=== PATIENT | female | born 1975 | race Caucasian/White ===

== ENCOUNTER 2017-01-19 23:15 | Inpatient (IN) | payer OTHER ==
[2017-01-20 00:11] VITALS: BMI 37.3
--- NOTE | 2017-01-20 00:11 | HP ---
COWS - Scale Resting Pulse: 0= [place] 80 or Below Sweatin= Chills/Flushing Restless Observation: 3= Extraneous Movement Pupil Size: 1= Pupils >than Normal Bone or Joint Aches: 2= Severe Diffuse Aches Runny Nose/ Eye Tearin= Runny Nose/Eyes GI Upset > 30mins: 3= Vomiting/Diarrhea Tremor Observation: 1= Tremor [place], Not Seen Yawning Observation: 1= 1-2x During Session Anxiety or Irritability: 4=Extreme Anxiety Goose Flesh Skin: 0=Smooth Skin COWS Score: 18 Admission ROS S - HPI Chief Complaint: WITHDRAWAL SYMPTOMS Allergies/Adverse Reactions: Allergies Allergy/AdvReac Type Severity Reaction Status Date / Time Penicillins AdvReac Verified 01/20/17 00:10 prochlorperazine AdvReac Verified 01/20/17 00:10 [From Compazine] prochlorperazine edisylate AdvReac Verified 01/20/17 00:10 [From Compazine] prochlorperazine maleate AdvReac Verified 01/20/17 00:10 [From Compazine] History of Present Illness: 41 Y.O. WOMAN WITH A 10 YEAR HISTORY OF PRESCRIPTION OPIOID DEPENDENCE IS SEEKING DETOX. THIS IS HER FIRST ADMISSION EVER INTO DETOX. SHE DOES NOT HAVE A SIGNIFICANT PERIOD OF BEING CLEAN. Exam Limitations: No Limitations - Ebola screening Have you traveled outside of the country in the last 21 days: No (N) Have you had contact with anyone from an Ebola affected area: No Do you have a fever: No - Review of Systems Constitutional: Chills, Diaphoresis, Loss of Appetite, Malaise, Night Sweats, Changes in sleep EENT: reports: Tearing, Nose Congestion Respiratory: reports: No Symptoms reported Cardiac: reports: No Symptoms Reported GI: reports: Nausea, Vomiting, Abdominal cramping : reports: No Symptoms Reported Musculoskeletal: reports: Back Pain (bulging cervical disc), Other Integumentary: reports: No Symptoms Reported Neuro: reports: No Symptoms reported Endocrine: reports: No Symptoms Reported Hematology: reports: No Symptoms Reported Psychiatric: reports: Orientated x3, Anxious, other (INSOMNIA) Other Systems: Reviewed and Negative Patient History - Patient Medical History Hx Anemia: No Hx Asthma: No Hx Chronic Obstructive Pulmonary Disease (COPD): No Hx Cancer: No Hx Cardiac Disorders: No Hx Congestive Heart Failure: No Hx Hypertension: No Hx Hypercholesterolemia: No Hx Pacemaker: No HX Cerebrovascular Accident: No Hx Seizures: No Hx Dementia: No Hx Diabetes: No Hx Gastrointestinal Disorders: No Hx Liver Disease: No Hx Genitourinary Disorders: No Hx Sexually Transmitted Disorders: No Hx Renal Disease (ESRD): No Hx Thyroid Disease: No Hx Human Immunodeficiency Virus (HIV): No Hx Hepatitis C: No Hx Depression: No Hx Suicide Attempt: No Hx Bipolar Disorder: No Hx Schizophrenia: No - Patient Surgical History Past Surgical History: Yes Other Surgical History: Tonsillectomy Anesthesia Reaction: No - PPD History Previous Implant?: Yes Documented Results: Negative w/o proof PPD to be Administered?: Yes - Reproductive History Patient is a Female of Child Bearing Age (11 -55 yrs old): Yes Last Menstrual Period: 01/02/12 Patient : No - Smoking Cessation Smoking history: Current some day smoker Have you smoked in the past 12 months: Yes Aproximately how many cigarettes per day: 1 Hx Chewing Tobacco Use: No Initiated information on smoking cessation: Yes 'Breaking Loose' booklet given: 01/20/17 - Substance & Tx. History Hx Alcohol Use: No Hx Substance Use: Yes Substance Use Type: Opiates, Prescribed Hx Substance Use Treatment: No (Denies every receiving detox or rehab services. ) - Substances Abused DILAUDID Route: Oral Frequency: 3-6 times per week Amount used: 48 Age of first use: 31 Date of Last Use: 01/16/17 OXYCODON Route: Oral Frequency: 3-6 times per week Amount used: 240MG Age of first use: 31 Date of Last Use: 01/16/17 Family Disease History - Family Disease History Family Disease History: Diabetes: Grandparent, Other: Father (HX ETOH DEPENDENCE ) Admission Physical Exam BHS - Vital Signs Vital Signs: Last Vital Signs Temp Pulse Resp BP Pulse Ox 96.5 F L 58 L 20 156/93 01/20/17 00:31 01/20/17 00:31 01/20/17 00:31 01/20/17 00:31 - Physical General Appearance: Yes: Obese, Tremorous, Irritable, Sweating, Anxious HEENTM: Yes: Hearing grossly Normal, Normal ENT Inspection, Normocephalic Respiratory: Yes: Lungs Clear, Normal Breath Sounds, No Respiratory Distress, No Accessory Muscle Use Neck: Yes: Trachea in good position Breast: Yes: Breast Exam Deferred Cardiology: Yes: Regular Rhythm, Regular Rate Abdominal: Yes: Non Tender, Flat, Soft Genitourinary: Yes: Other (NO COMPLAINTS REPORTED) Back: Yes: Normal Inspection Musculoskeletal: Yes: Back pain, Muscle Pain Extremities: Yes: Tremors Neurological: Yes: Alert, Normal Response Integumentary: Yes: Dry, Warm Lymphatic: Yes: Within Normal Limits - Diagnostic (1) Opioid dependence with withdrawal Current Visit: Yes Status: Chronic (2) Obese Current Visit: Yes Status: Chronic (3) Chronic back pain Current Visit: Yes Status: Chronic Cleared for Admission S - Detox or Rehab [facility] Level of Care: Medically Managed Detox Regimen/Protocol: Methadone S Breath Alcohol Content Breath Alcohol Content: 0 Vital Signs - Vital Signs Vital Signs Refused: No Temperature: 96.5 F Temperature Source: Oral Pulse Rate: 58 Respiratory Rate: 20 Blood Pressure: 156/93 BP Location: Left Arm Blood Pressure Position: Sitting - Height Height: 5 ft 7 in - Weight Weight: 238 lb Weight Measurement Method: Standing Scale Body Mass Index (BMI): 37.3 Urine Pregancy Test - Test Device Lot Number: [id number] Expiration Date: 07/02/18 - Control Horizontal Line in Upper Control Window?: Yes - Result Urine Test Results: Negative- NO Line Present Urine Drug Screen - Test Device Lot Number: [id number] Expiration Date: 10/31/18 - Control Is Test Valid: Yes - Results Drug Screen Negative: No Urine Drug Screen Results: OPI-Opiates, BZO-Benzodiazepines, TCA-Tricyclic Antidepress
[2017-01-20] MEDS ORDERED: MAGNESIUM HYDROX 2400MG/30ML ORAL SUSPENSION 30 ML CUP PO PRN (00:55)
[2017-01-20] MEDS ORDERED: ACETAMINOPHEN 325 MG TABLET (FP) PO PRN (00:55)
[2017-01-20] MEDS ORDERED: MAG HYDROX/AL HYDROX/SIMETH 30 ML UNIT-DOSE CUP PO PRN (00:55)
[2017-01-20] MEDS ORDERED: METHADONE HCL 10 MG TABLET (FOR DETOX USE ONLY) PO ONE ×3 (00:55→23:00)
[2017-01-20] MEDS ORDERED: P-EPHED 60MG/TRIPROLIDI 2.5MG TABLET PO PRN (00:55)
[2017-01-20] MEDS ORDERED: IBUPROFEN 400 MG TABLET (FP) PO PRN (00:55)
[2017-01-20] MEDS ORDERED: MENTHOL/PHENOL 1 EACH UD MM PRN (00:55)
[2017-01-20] MEDS ORDERED: LOPERAMIDE HCL 2 MG CAPSULE PO PRN (00:55)
[2017-01-20] MEDS ORDERED: MAGNESIUM CITRATE 300 ML BOTTLE PO PRN (00:55)
[2017-01-20] MEDS ORDERED: guaiFENesin/D-METHORPHAN HB 10 ML UNIT-DOSE CUPS PO PRN (00:55)
[2017-01-20] MEDS ORDERED: cloNIDine HCL 0.1 MG TABLET PO PRN (01:20)
[2017-01-20] MEDS: TRIMETHOBENZAMIDE HCL 200MG/2ML INJ IM PRN ×2 (01:31→09:08)
[2017-01-20] MEDS: diazePAM 5 MG TABLET PO PRN ×4 (02:03→22:19)
[2017-01-20] MEDS: hydrOXYzine PAMOATE 50 MG CAPSULE (FP) PO PRN ×4 (03:22→17:02)
[2017-01-20] MEDS: cloNIDine HCL 0.1 MG TABLET PO PRN ×2 (07:45→17:02)
[2017-01-20] MEDS: PRENATAL VITAMINS W/ FOLIC ACID TABLET (FP) PO SCH (10:44)
--- NOTE | 2017-01-20 11:13 | PN ---
[facility] COWS - Scale Resting Pulse: 1= [place] 81-100 Sweatin= Chills/Flushing Restless Observation: 1= Difficult to Sit Still Pupil Size: 1= Pupils >than Normal Bone or Joint Aches: 2= Severe Diffuse Aches Runny Nose/ Eye Tearin= Nasal Congestion GI Upset > 30mins: 3= Vomiting/Diarrhea Tremor Observation of Outstretched Hands: 2= Slight Tremor Visible Yawning Observation: 0= None Anxiety or Irritability: 2=Irritable/Anxious Goose Flesh Skin: 0=Smooth Skin COWS Score: 14 BHS Progress Note (SOAP) Subjective: interruptted sleep, sweats, nausea, vomiting , bodyaches Objective: 01/20/17 11:11 Vital Signs Temperature 98.2 F 01/20/17 09:38 Pulse Rate 60 01/20/17 09:38 Respiratory Rate 18 01/20/17 09:38 Blood Pressure 174/91 01/20/17 09:38 O2 Sat by Pulse Oximetry (%) Assessment: 01/20/17 11:12 withdrawal sx's 01/20/17 14:50 Plan: cont. detox increase fluids tigan im zofran s/l prn
[2017-01-20] MEDS: ONDANSETRON *ODT* 4 MG TABLET SL PRN (12:00)
[2017-01-20 19:50] LABS: URINE APPEARANCE CLEAR; URINE BILIRUBIN NEGATIVE (NEGATIVE); URINE BLOOD NEGATIVE (NEGATIVE); URINE COLOR YELLOW; URINE GLUCOSE (UA) NEGATIVE (NEGATIVE); URINE KETONE NEGATIVE (NEGATIVE); URINE LEUK ESTERASE NEGATIVE (NEGATIVE); URINE NITRITE NEGATIVE (NEGATIVE); URINE PROTEIN NEGATIVE (NEGATIVE); URINE UROBILINOGEN 2.0 E.U/dl E.U./dl (0.2-1.0)
[2017-01-20] MEDS: THIAMINE HCL 100 MG TABLET (FP) PO SCH (22:18)
[2017-01-20] MEDS: diphenhydrAMINE HCL 50 MG CAPSULE PO PRN (22:19)
[2017-01-21] MEDS: diazePAM 5 MG TABLET PO PRN ×4 (05:27→20:20)
[2017-01-21] MEDS: cloNIDine HCL 0.1 MG TABLET PO PRN ×2 (06:50→22:36)
--- NOTE | 2017-01-21 09:10 | CONSULT ---
[facility] Psychiatric Consult - Data Date of interview: 01/21/17 Admission source: [facility] Identifying data: This is 41 years old female with no psychiatric hospitalization history intoxicated with: Opioids, Benzodiazepins, TCA Substance Abuse History: Urine Drug Screen Results: OPI-Opiates, BZO- Benzodiazepines, TCA-Tricyclic Antidepress. - Smoking Cessation. Smoking history: Current some day smoker. Have you smoked in the past 12 months: Yes. Aproximately how many cigarettes per day: 1. Hx Chewing Tobacco Use: No. Initiated information on smoking cessation: Yes. 'Breaking Loose' booklet given : 01/20/17. - Substance & Tx. History. Hx Alcohol Use: No. Hx Substance Use: Yes. Substance Use Type: Opiates, Prescribed. Hx Substance Use Treatment: No ( Denies every receiving detox or rehab services. ). - Substances Abused. DILAUDID. Route: Oral. Frequency: 3-6 times per week. Amount used: 48. Age of first use: 31. Date of Last Use: 01/16/17. OXYCODON. Route: Oral. Frequency: 3-6 times per week. Amount used: 240MG. Age of first use: 31. Date of Last Use: 01/16/17 Medical History: LBP, Obesity Psychiatric History: Patient reports no past psychiatric history, no medications taking prior to admission Physical/Sexual Abuse/Trauma History: Denies Additional Comment: Observation. Detox Unit Care Protocol. Urine Drug Screen Results: OPI-Opiates, BZO-Benzodiazepines, TCA-Tricyclic Antidepress Mental Status Exam - Mental Status Exam Alert and Oriented to: Person Cognitive Function: Fair Patient Appearance: Unkempt Mood: Sad Patient Behavior: Sedated Speech Pattern: Delayed Voice Loudness: Mildly Soft/Quiet Thought Process: Circumstantial Thought Disorder: Being Controlled Hallucinations: Denies Suicidal Ideation: Denies Homicidal Ideation: Denies Insight/Judgement: Fair Sleep: Difficulty falling asleep Appetite: Weight gain Muscle strength/Tone: Mild Hypotonicity Gait/Station: Shuffling Additional Comments: Observation. Detox Unit Care Protocol Psychiatric Findings - Problem List ([place] 1, 2,3) (1) Chronic back pain Current Visit: Yes Status: Chronic (2) Opioid dependence with withdrawal Current Visit: Yes Status: Chronic (3) Benzodiazepine abuse Current Visit: Yes Status: Acute (4) Drug-induced mood disorder Current Visit: Yes Status: Suspected - Initial Treatment Plan Initial Treatment Plan: Observation. Detox Unit Care Protocol
[2017-01-21 09:54] LABS: MCH 29.4 pg (25.7-33.7); MCHC 33.1 g/dl (32.0-36.0); MEAN CELL VOLUME 88.9 fl (80-96); MEAN PLT VOLUME 9.2 fl (7.5-11.1); PLATELET COUNT 281 K/MM3 (134-434); RDW 14.6 % (11.6-15.6); WHITE BLOOD COUNT 10.9 K/mm3 (4.0-10.0)
[2017-01-21] MEDS ORDERED: METHADONE HCL 10 MG TABLET (FOR DETOX USE ONLY) PO ONE (10:00)
[2017-01-21 10:11] LABS: ALBUMIN 3.9 g/dl (3.4-5.0); ANION GAP 8 (8-16); CALCIUM 9.7 mg/dL (8.5-10.1); CO2 26 mmol/L (21-32); CREATININE 0.7 mg/dL (0.55-1.02); GLUCOSE,RANDOM 94 mg/dL (74-106); SGOT/AST 14 U/L (15-37); SGPT/ALT 19 U/L (12-78)
[2017-01-21 10:14] LABS: ALK PHOS 97 U/L (45-117); BILIRUBIN,TOTAL 0.8 mg/dL (0.2-1.0); TOT PROT 7.2 g/dl (6.4-8.2)
[2017-01-21] MEDS: PRENATAL VITAMINS W/ FOLIC ACID TABLET (FP) PO SCH (10:21)
--- NOTE | 2017-01-21 11:04 | EKG ---
Test Reason : Blood Pressure : / mmHG Vent. Rate : 053 BPM Atrial Rate : 053 BPM P-R Int : 180 ms QRS Dur : 106 ms QT Int : 418 ms P-R-T Axes : 046 076 063 degrees QTc Int : 392 ms SINUS BRADYCARDIA OTHERWISE NORMAL ECG NO PREVIOUS ECGS AVAILABLE Confirmed by KALEN COLON, ANEL ([id number]) on 01/21/2017 11:04:32 AM Referred By: Lindy Gary Confirmed By:ANEL HIGUERA MD
--- NOTE | 2017-01-21 12:52 | PN ---
S COWS - Scale Resting Pulse: 0= [place] 80 or Below Sweatin= Chills/Flushing Restless Observation: 1= Difficult to Sit Still Pupil Size: 1= Pupils >than Normal Bone or Joint Aches: 1= Mild Discomfort Runny Nose/ Eye Tearin= Nasal Congestion GI Upset > 30mins: 2= Nausea/Diarrhea Tremor Observation of Outstretched Hands: 1= Tremor [place], Not Seen Yawning Observation: 0= None Anxiety or Irritability: 2=Irritable/Anxious Goose Flesh Skin: 0=Smooth Skin COWS Score: 10 [facility] Progress Note (SOAP) Subjective: interrupted sleep, nausea, vomiting , not eatting Objective: 01/21/17 12:54 Vital Signs Temperature 97.2 F L 01/21/17 09:53 Pulse Rate 68 01/21/17 09:53 Respiratory Rate 18 01/21/17 09:53 Blood Pressure 132/92 01/21/17 09:53 O2 Sat by Pulse Oximetry (%) Laboratory Tests 01/20/17 01/21/17 01/21/17 15:26 07:00 07:00 WBC 10.9 H RBC 4.59 Hgb 13.5 Hct 40.9 MCV 88.9 MCHC 33.1 RDW 14.6 Plt Count 281 MPV 9.2 Sodium 140 Potassium 4.4 Chloride 106 Carbon Dioxide 26 Anion Gap 8 BUN 10 Creatinine 0.7 Creat Clearance w eGFR > 60 Random Glucose 94 Calcium 9.7 Total Bilirubin 0.8 AST 14 L ALT 19 Alkaline Phosphatase 97 Total Protein 7.2 Albumin 3.9 Urine Color Yellow Urine Appearance Clear Urine pH 7.0 Ur Specific [place] 1.020 Urine Protein Negative Urine Glucose (UA) Negative Urine Ketones Negative Urine Blood Negative Urine Nitrite Negative Urine Bilirubin Negative Urine Urobilinogen 2.0 e.u/dl H Ur Leukocyte Esterase Negative RPR Titer 01/21/17 07:00 WBC RBC Hgb Hct MCV MCHC RDW Plt Count MPV Sodium Potassium Chloride Carbon Dioxide Anion Gap BUN Creatinine Creat Clearance w eGFR Random Glucose Calcium Total Bilirubin AST ALT Alkaline Phosphatase Total Protein Albumin Urine Color Urine Appearance Urine pH Ur Specific [place] Urine Protein Urine Glucose (UA) Urine Ketones Urine Blood Urine Nitrite Urine Bilirubin Urine Urobilinogen Ur Leukocyte Esterase RPR Titer Nonreactive pt aox3 in nad lying in bed no vomiting 01/21/17 12:54 Assessment: 01/21/17 12:54 withdrawal sx's pt wants im meds for vomiting and iv fluids - but there has been no vomiting , vss bun creatinine normal -pt doesnt appear dehydrated . pt given a pitcher at bedside and encourage to drink fluids 01/21/17 12:55 Plan: cont. detox increase fluids
[2017-01-21] MEDS ORDERED: NICOTINE POLACRILEX 4 MG GUM BUC PRN (21:29)
[2017-01-21] MEDS: hydrOXYzine PAMOATE 50 MG CAPSULE (FP) PO PRN (22:36)
[2017-01-21] MEDS: THIAMINE HCL 100 MG TABLET (FP) PO SCH (22:36)
[2017-01-22] MEDS: cloNIDine HCL 0.1 MG TABLET PO PRN ×3 (04:47→22:16)
[2017-01-22] MEDS: hydrOXYzine PAMOATE 50 MG CAPSULE (FP) PO PRN ×2 (04:47→22:16)
[2017-01-22] MEDS: TRIMETHOBENZAMIDE HCL 200MG/2ML INJ IM PRN ×2 (05:06→11:42)
[2017-01-22] MEDS: diazePAM 5 MG TABLET PO PRN ×2 (05:49→11:37)
[2017-01-22] MEDS ORDERED: METHADONE HCL 5 MG TABLET (FOR DETOX USE ONLY) PO ONE (10:00)
[2017-01-22] MEDS: NICOTINE 21 MG/24 HOURS TOPICAL PATCH TD SCH ×2 (10:10→14:59)
[2017-01-22] MEDS: PRENATAL VITAMINS W/ FOLIC ACID TABLET (FP) PO SCH (10:10)
--- NOTE | 2017-01-22 12:35 | PN ---
[facility] Progress Note (SOAP) Subjective: interrupted sleep, sweats, nausea, vomiting Objective: 01/22/17 12:33 Vital Signs Temperature 98.2 F 01/22/17 09:44 Pulse Rate 60 01/22/17 09:44 Respiratory Rate 20 01/22/17 09:44 Blood Pressure 150/95 01/22/17 09:44 O2 Sat by Pulse Oximetry (%) Laboratory Tests 01/20/17 01/21/17 01/21/17 15:26 07:00 07:00 WBC 10.9 H RBC 4.59 Hgb 13.5 Hct 40.9 MCV 88.9 MCHC 33.1 RDW 14.6 Plt Count 281 MPV 9.2 Sodium 140 Potassium 4.4 Chloride 106 Carbon Dioxide 26 Anion Gap 8 BUN 10 Creatinine 0.7 Creat Clearance w eGFR > 60 Random Glucose 94 Calcium 9.7 Total Bilirubin 0.8 AST 14 L ALT 19 Alkaline Phosphatase 97 Total Protein 7.2 Albumin 3.9 Urine Color Yellow Urine Appearance Clear Urine pH 7.0 Ur Specific [place] 1.020 Urine Protein Negative Urine Glucose (UA) Negative Urine Ketones Negative Urine Blood Negative Urine Nitrite Negative Urine Bilirubin Negative Urine Urobilinogen 2.0 e.u/dl H Ur Leukocyte Esterase Negative RPR Titer 01/21/17 07:00 WBC RBC Hgb Hct MCV MCHC RDW Plt Count MPV Sodium Potassium Chloride Carbon Dioxide Anion Gap BUN Creatinine Creat Clearance w eGFR Random Glucose Calcium Total Bilirubin AST ALT Alkaline Phosphatase Total Protein Albumin Urine Color Urine Appearance Urine pH Ur Specific [place] Urine Protein Urine Glucose (UA) Urine Ketones Urine Blood Urine Nitrite Urine Bilirubin Urine Urobilinogen Ur Leukocyte Esterase RPR Titer Nonreactive pt aox3 lying in bed in nad ,not actively vomiting Assessment: 01/22/17 12:34 withdrawal sx's Plan: cont. detox increase fluids tigan q gh brat diet
[2017-01-22] MEDS: THIAMINE HCL 100 MG TABLET (FP) PO SCH (22:15)
[2017-01-23] MEDS: ONDANSETRON *ODT* 4 MG TABLET SL PRN ×3 (04:54→22:10)
[2017-01-23] MEDS: diphenhydrAMINE HCL 50 MG CAPSULE PO PRN (05:15)
[2017-01-23] MEDS ORDERED: METHADONE HCL 5 MG TABLET (FOR DETOX USE ONLY) PO ONE (10:00)
--- NOTE | 2017-01-23 10:14 | PN ---
[facility] Progress Note (SOAP) Subjective: Sweating,interrupted sleep,restless.Pt is on many home meds which she did not mention on admission. Objective: 01/23/17 10:12 Vital Signs - 8 hr 01/23/17 01/23/17 03:30 06:00 Temperature 96.6 F L Pulse Rate 84 Respiratory 18 18 Rate Blood Pressure 94/54 Laboratory Tests 01/20/17 01/21/17 01/21/17 15:26 07:00 07:00 WBC 10.9 H RBC 4.59 Hgb 13.5 Hct 40.9 MCV 88.9 MCHC 33.1 RDW 14.6 Plt Count 281 MPV 9.2 Sodium 140 Potassium 4.4 Chloride 106 Carbon Dioxide 26 Anion Gap 8 BUN 10 Creatinine 0.7 Creat Clearance w eGFR > 60 Random Glucose 94 Calcium 9.7 Total Bilirubin 0.8 AST 14 L ALT 19 Alkaline Phosphatase 97 Total Protein 7.2 Albumin 3.9 Urine Color Yellow Urine Appearance Clear Urine pH 7.0 Ur Specific [place] 1.020 Urine Protein Negative Urine Glucose (UA) Negative Urine Ketones Negative Urine Blood Negative Urine Nitrite Negative Urine Bilirubin Negative Urine Urobilinogen 2.0 e.u/dl H Ur Leukocyte Esterase Negative RPR Titer 01/21/17 07:00 WBC RBC Hgb Hct MCV MCHC RDW Plt Count MPV Sodium Potassium Chloride Carbon Dioxide Anion Gap BUN Creatinine Creat Clearance w eGFR Random Glucose Calcium Total Bilirubin AST ALT Alkaline Phosphatase Total Protein Albumin Urine Color Urine Appearance Urine pH Ur Specific [place] Urine Protein Urine Glucose (UA) Urine Ketones Urine Blood Urine Nitrite Urine Bilirubin Urine Urobilinogen Ur Leukocyte Esterase RPR Titer Nonreactive labs noted Assessment: 01/23/17 10:14 Withdrawal sx. Plan: Continue detox
[2017-01-23] MEDS ORDERED: LEVOTHYROXINE NA 25 MCG TABLET (FP) PO ONE (10:17)
[2017-01-23] MEDS: METOCLOPRAMIDE HCL 10 MG TABLET (FP) PO SCH ×2 (10:48→17:07)
[2017-01-23] MEDS: PRENATAL VITAMINS W/ FOLIC ACID TABLET (FP) PO SCH (10:48)
[2017-01-23] MEDS: NICOTINE 21 MG/24 HOURS TOPICAL PATCH TD SCH (10:50)
[2017-01-23] MEDS: TRIMETHOBENZAMIDE HCL 200MG/2ML INJ IM PRN ×2 (11:06→17:06)
[2017-01-23] MEDS: hydrOXYzine PAMOATE 50 MG CAPSULE (FP) PO PRN ×3 (12:33→22:09)
[2017-01-23] MEDS: cloNIDine HCL 0.1 MG TABLET PO PRN ×2 (14:19→22:09)
[2017-01-23] MEDS: ZOLPIDEM TARTRATE 10 MG TABLET (PARK CARE ONLY) PO PRN (22:08)
[2017-01-23] MEDS: THIAMINE HCL 100 MG TABLET (FP) PO SCH (22:09)
[2017-01-24] MEDS: diphenhydrAMINE HCL 50 MG CAPSULE PO PRN (00:43)
[2017-01-24] MEDS: hydrOXYzine PAMOATE 50 MG CAPSULE (FP) PO PRN ×2 (05:28→11:56)
[2017-01-24] MEDS: METOCLOPRAMIDE HCL 10 MG TABLET (FP) PO SCH ×3 (07:21→16:43)
[2017-01-24] MEDS: LEVOTHYROXINE NA 25 MCG TABLET (FP) PO SCH (07:24)
[2017-01-24] MEDS ORDERED: METHADONE HCL 10 MG TABLET (FOR DETOX USE ONLY) PO ONE (10:00)
[2017-01-24] MEDS: NICOTINE 21 MG/24 HOURS TOPICAL PATCH TD SCH (10:24)
--- NOTE | 2017-01-24 11:44 | PN ---
S Progress Note (SOAP) Subjective: ALERT,IRRITABLE,ANXIOUS,INTERRUPTED SLEEP, Objective: 01/24/17 11:43 Vital Signs Temperature 97.6 F 01/24/17 10:21 Pulse Rate 84 01/24/17 10:21 Respiratory Rate 16 01/24/17 10:21 Blood Pressure 137/103 01/24/17 10:21 O2 Sat by Pulse Oximetry (%) Assessment: 01/24/17 11:43 WITHDRAWAL SYMPTOM Plan: CONTINUE DETOX,DISCHARGE IN AM
[2017-01-24] MEDS: PRENATAL VITAMINS W/ FOLIC ACID TABLET (FP) PO SCH (11:54)
[2017-01-24] MEDS: ZOLPIDEM TARTRATE 10 MG TABLET (PARK CARE ONLY) PO PRN (21:31)
[2017-01-24] MEDS: cloNIDine HCL 0.1 MG TABLET PO PRN (21:31)
[2017-01-24] MEDS: THIAMINE HCL 100 MG TABLET (FP) PO SCH (21:32)
[2017-01-25] MEDS: diphenhydrAMINE HCL 50 MG CAPSULE PO PRN (00:43)
[2017-01-25] MEDS ORDERED: METHADONE HCL 5 MG TABLET (FOR DETOX USE ONLY) PO ONE (06:00)
[2017-01-25 06:04] VITALS: BP 145/96; PULSE 81; TEMP 97.3
[2017-01-25] MEDS: LEVOTHYROXINE NA 25 MCG TABLET (FP) PO SCH (07:00)
[2017-01-25] MEDS: METOCLOPRAMIDE HCL 10 MG TABLET (FP) PO SCH (07:00)
[2017-01-25] MEDS: PRENATAL VITAMINS W/ FOLIC ACID TABLET (FP) PO SCH (09:06)
[2017-01-25] MEDS: NICOTINE 21 MG/24 HOURS TOPICAL PATCH TD SCH (09:06)
--- NOTE | 2017-01-25 13:18 | DS ---
[facility] Detox Discharge Summary Admission Date: 01/19/17 Discharge Date: 01/25/17 - History Present History: Opioid Dependence, Sedative Dependence Additional Comments: ADVISED PATIENT TO FOLLOW-UP WITH [facility] OPERATOR / REHAB MEDICAL PROVIDER AFTER DISCHARGE FROM [facility]. Pertinent Past History: Chronic Back Pain. - Physical Exam Results Vital Signs: Vital Signs Temperature 97.3 F L 01/25/17 06:00 Pulse Rate 81 01/25/17 06:00 Respiratory Rate 18 01/25/17 06:00 Blood Pressure 145/96 01/25/17 06:00 O2 Sat by Pulse Oximetry (%) Pertinent Admission Physical Exam Findings: WITHDRAWAL SYMPTOMS. Laboratory Tests 01/20/17 01/21/17 01/21/17 15:26 07:00 07:00 WBC 10.9 H RBC 4.59 Hgb 13.5 Hct 40.9 MCV 88.9 MCHC 33.1 RDW 14.6 Plt Count 281 MPV 9.2 Sodium 140 Potassium 4.4 Chloride 106 Carbon Dioxide 26 Anion Gap 8 BUN 10 Creatinine 0.7 Creat Clearance w eGFR > 60 Random Glucose 94 Calcium 9.7 Total Bilirubin 0.8 AST 14 L ALT 19 Alkaline Phosphatase 97 Total Protein 7.2 Albumin 3.9 Urine Color Yellow Urine Appearance Clear Urine pH 7.0 Ur Specific [place] 1.020 Urine Protein Negative Urine Glucose (UA) Negative Urine Ketones Negative Urine Blood Negative Urine Nitrite Negative Urine Bilirubin Negative Urine Urobilinogen 2.0 e.u/dl H Ur Leukocyte Esterase Negative RPR Titer 01/21/17 07:00 WBC RBC Hgb Hct MCV MCHC RDW Plt Count MPV Sodium Potassium Chloride Carbon Dioxide Anion Gap BUN Creatinine Creat Clearance w eGFR Random Glucose Calcium Total Bilirubin AST ALT Alkaline Phosphatase Total Protein Albumin Urine Color Urine Appearance Urine pH Ur Specific [place] Urine Protein Urine Glucose (UA) Urine Ketones Urine Blood Urine Nitrite Urine Bilirubin Urine Urobilinogen Ur Leukocyte Esterase RPR Titer Nonreactive LABS NOTED. - Treatment Hospital Course: Detox Protocol Followed, Detoxed Safely, Responded well, Discharged Condition Good Patient has Accepted a Rehab Referral to: PATIENT ELECTING TO GO HOME. 12-STEP/ NA OUTPATIENT PROGRAMS RECOMMENDED. - Medication Discharge Medications: Ambulatory Orders Levothyroxine [Synthroid -] 25 mcg PO DAILY 01/25/17 Metoclopramide HCl [Reglan -] 10 mg PO TID 01/25/17 Pantoprazole Sodium [Protonix -] 20 mg PO DAILY 01/25/17 - Diagnosis (1) Benzodiazepine abuse Status: Acute (2) Chronic back pain Status: Chronic Qualifiers: Back pain location: back pain in unspecified location Back pain laterality: unspecified Qualified Code(s): M54.9 - Dorsalgia, unspecified ; G89.29 - Other chronic pain (3) Obese Status: Chronic Qualifiers: Obesity type: unspecified obesity type Obesity severity: unspecified obesity severity Qualified Code(s): E66.9 - Obesity, unspecified (4) Opioid dependence with withdrawal Status: Acute (5) Drug-induced mood disorder Status: Suspected - AMA Did Patient Leave Against Medical Advice: No
== END 2017-01-25 09:28 | disposition home or self-care (01) | DRG 773 ==
LOC: YASAS 23:15 → Y6N 23:58
PROVIDERS: ADMIT Internal Medicine; ATTEND Internal Medicine
PROC: HZ2ZZZZ Detoxification Services for Substance Abuse Treatment (ICD-10-PCS; principal; 2017-01-19)
DX: F11.23 Opioid dependence with withdrawal (principal); F13.10 Sedative, hypnotic or anxiolytic abuse, uncomplicated; F19.24 Other psychoactive substance dependence with psychoactive substance-induced mood disorder; E66.9 Obesity, unspecified; Z68.37 Body mass index [BMI] 37.0-37.9, adult; M54.9 Dorsalgia, unspecified; G89.29 Other chronic pain; Z72.0 Tobacco use
CPT/HCPCS: 36415; 80053; 81003; 85027; 86593; 93005; 93010